=== PATIENT | male | born 1990 | race American Indian/Alaskan Native ===

== ENCOUNTER 2017-10-30 02:06 | Emergency (ER) | payer SELFPAY ==
[2017-10-30 02:48] LABS: Basophils % (Auto) 0.8 % (0.0-1.8); Eosinophils # (Auto) 0.3 K/mm3 (0.0-0.4); Eosinophils % (Auto) 4.9 % (0.0-4.3); Hematocrit 41.1 % (35.5-45.6); Hemoglobin 13.4 gm/dl (11.8-15.2); Lymphocytes # (Auto) 2.5 K/mm3 (1.2-5.4); Lymphocytes % (Auto) 41.6 % (13.4-35.0); Mean Corpuscular HGB Conc 33 % (32-34); Mean Corpuscular Volume 70 fl (84-94); Monocytes # (Auto) 0.6 K/mm3 (0.0-0.8); Monocytes % (Auto) 9.9 % (0.0-7.3); Platelet Count 277 K/mm3 (140-440); Red Blood Count 5.84 M/mm3 (3.65-5.03); Red Cell Distribution Width 14.6 % (13.2-15.2)
[2017-10-30 02:49] LABS: Mean Corpuscular Hemoglobin 23 pg (28-32)
[2017-10-30 03:26] LABS: Alanine Aminotransferase 14 units/L (7-56); Albumin 4.1 g/dL (3.9-5); BUN/Creatinine Ratio 11; Blood Urea Nitrogen 14 mg/dL (9-20); Calcium 9.2 mg/dL (8.4-10.2); Hemolysis Index 5
[2017-10-30] MEDS ORDERED: TORADOL IV ONE (03:26)
[2017-10-30] MEDS ORDERED: NACL 0.9% 1000 ML 1,000 ML IV ONE (03:26)
[2017-10-30] MEDS ORDERED: ZOFRAN IV ONE (03:26)
--- NOTE | 2017-10-30 03:30 | Emergency Department Report ---
ED Abdominal Pain HPI - General Chief Complaint: Abdominal Pain Stated Complaint: ABD PAIN Time Seen by Provider: 10/30/17 03:10 Source: patient Mode of arrival: Ambulatory Limitations: No Limitations - History of Present Illness Initial Comments: Patient is 27 years old male with no significant past medical history. Patient presented to the ER with suprapubic abdominal pain, nausea and vomiting and burning sensation when he urinates. Patient denied any fever or diarrhea. MD Complaint: abdominal pain -: week(s) Location: suprapubic Radiation: none Migration to: no migration Severity: moderate Severity scale (0 -10): 9 Quality: cramping Consistency: intermittent Worsens With: vomiting Associated Symptoms: nausea, vomiting, dysuria - Related Data Allergies Allergy/AdvReac Type Severity Reaction Status Date / Time bee venom protein (honey bee) Allergy Swelling Verified 10/30/17 02:11 ED Review of Systems ROS: Stated complaint: ABD PAIN Other details as noted in HPI Comment: All other systems reviewed and negative Constitutional: denies: chills, fever Respiratory: denies: cough, shortness of breath Cardiovascular: denies: chest pain, palpitations Gastrointestinal: abdominal pain, nausea, vomiting. denies: diarrhea, constipation, hematemesis Genitourinary: urgency, dysuria, frequency. denies: hematuria, discharge, testicular pain, testicular mass Skin: denies: rash, lesions Neurological: denies: headache, weakness, numbness, paresthesias, confusion, abnormal gait ED Past Medical Hx - Past Medical History Previous Medical History?: No - Surgical History Past Surgical History?: No - Social History Smoking Status: Current Every Day Smoker Substance Use Type: Cocaine ED Physical Exam - General Limitations: No Limitations General appearance: alert, in no apparent distress - Head Head exam: Present: atraumatic, normocephalic - Eye Eye exam: Present: normal appearance, PERRL - ENT ENT exam: Present: mucous membranes dry - Neck Neck exam: Present: normal inspection, full ROM. Absent: tenderness, meningismus, lymphadenopathy, thyromegaly - Respiratory Respiratory exam: Present: normal lung sounds bilaterally. Absent: respiratory distress, wheezes, rales, rhonchi, stridor, chest wall tenderness, accessory muscle use, decreased breath sounds, prolonged expiratory - Cardiovascular Cardiovascular Exam: Present: regular rate, normal rhythm, normal heart sounds - GI/Abdominal GI/Abdominal exam: Present: soft, normal bowel sounds. Absent: distended, tenderness, guarding, rebound, rigid, organomegaly, mass, bruit, pulsatile mass , hernia - Extremities Exam Extremities exam: Present: normal inspection, full ROM, normal capillary refill - Back Exam Back exam: Present: normal inspection, full ROM. Absent: tenderness, CVA tenderness (R), CVA tenderness (L), muscle spasm, paraspinal tenderness, vertebral tenderness, rash noted - Neurological Exam Neurological exam: Present: alert, oriented X3, CN II-XII intact, normal gait, reflexes normal - Skin Skin exam: Present: warm, intact, normal color. Absent: cyanosis, diaphoretic, erythema, urticaria, vesicles ED Course Vital Signs 10/30/17 10/30/17 10/30/17 02:11 03:03 03:12 Temperature 98.6 F 98.1 F Pulse Rate 88 65 Respiratory 18 14 Rate Blood Pressure 130/88 127/85 Blood Pressure 127/85 [Left] O2 Sat by Pulse 97 100 Oximetry 10/30/17 10/30/17 10/30/17 03:14 03:16 03:30 Temperature Pulse Rate Respiratory 14 Rate Blood Pressure 127/85 127/85 Blood Pressure [Left] O2 Sat by Pulse 100 98 99 Oximetry 10/30/17 10/30/17 10/30/17 03:46 03:54 04:00 Temperature Pulse Rate Respiratory 14 Rate Blood Pressure 127/85 118/80 Blood Pressure [Left] O2 Sat by Pulse 100 98 Oximetry 10/30/17 10/30/17 10/30/17 04:16 04:30 04:46 Temperature Pulse Rate Respiratory Rate Blood Pressure 118/80 118/81 118/81 Blood Pressure [Left] O2 Sat by Pulse 100 100 100 Oximetry 10/30/17 10/30/17 10/30/17 05:00 05:16 05:30 Temperature Pulse Rate Respiratory Rate Blood Pressure 111/72 111/72 124/71 Blood Pressure [Left] O2 Sat by Pulse 100 100 99 Oximetry - Reevaluation(s) Reevaluation #1: 10/30/17 05:40 Patient stated that he is feeling much better. No abdominal pain no nausea no vomiting. Patient is refusing to give urine, he told the nurse that he used cocaine recently. When I discussed with the patient the possibility of STDs he said he wanted to be treated empirically for that. I will give him Rocephin here and I will give her a prescription for doxycycline for 10 days. ED Medical Decision Making - Lab Data Result diagrams: 10/30/17 02:22 10/30/17 02:22 Critical care attestation.: If time is entered above; I have spent that time in minutes in the direct care of this critically ill patient, excluding procedure time. ED Disposition Clinical Impression: Abdominal pain, STD exposure Disposition: DC- TO HOME OR SELFCARE Is pt being admited?: No Condition: Stable Instructions: Abdominal Pain (ED)
[2017-10-30] MEDS ORDERED: ROCEPHIN/NS 1 GM/50 ML 1 GM/50 ML BAG IV ONE (05:43)
[2017-10-30] MEDS ORDERED: cefTRIAXone 1 GM in NACL 0.9% 20 ML IV ONE (06:00)
[2017-10-30 06:01] LABS: Bacteria,Urine 2+ /HPF (Negative); Bilirubin,Urine NEG (Negative); Blood,Urine NEG (Negative); Color,Urine Yellow (Yellow); Mucus,Urine 3+ /HPF
[2017-10-30 06:04] LABS: WBC,Urine > 182.0 /HPF (0.0-6.0)
[2017-10-30 06:51] VITALS: BP 113/75
== END 2017-10-30 06:51 | disposition home or self-care (01) ==
LOC: ED 02:06
DX: R10.30 Lower abdominal pain, unspecified (principal); Z20.2 Contact with and (suspected) exposure to infections with a predominantly sexual mode of transmission; F17.200 Nicotine dependence, unspecified, uncomplicated; F14.10 Cocaine abuse, uncomplicated; Z91.030 Bee allergy status
CPT/HCPCS: 36415; 80053; 81001; 85025; 96361; 96374; 96375; 99283; J0696; J1885; J2405; J7030